=== PATIENT | male | born 1950 | race American Indian/Alaskan Native ===

== ENCOUNTER → 2021-07-25 10:33 | Outpatient (BNVA) | payer MEDICARE, MEDICAID, SELFPAY | PROVIDERS: Family Provider Nurse Practitioner Family; PCP Internal Medicine; Visit Provider Internal Medicine | DX: I25.10 Atherosclerotic heart disease of native coronary artery without angina pectoris (principal); I49.5 Sick sinus syndrome; I10 Essential (primary) hypertension; E78.5 Hyperlipidemia, unspecified; J44.9 Chronic obstructive pulmonary disease, unspecified; I35.0 Nonrheumatic aortic (valve) stenosis; I42.6 Alcoholic cardiomyopathy; Z95.0 Presence of cardiac pacemaker; Z79.82 Long term (current) use of aspirin; Z87.891 Personal history of nicotine dependence | CPT/HCPCS: 99213 ==

== ENCOUNTER → 2021-08-29 07:47 | Outpatient (BNVA) | payer MEDICARE, MEDICAID, SELFPAY | PROVIDERS: Family Provider Nurse Practitioner Family; PCP Internal Medicine; Visit Provider Internal Medicine | DX: Z45.010 Encounter for checking and testing of cardiac pacemaker pulse generator [battery] (principal) | CPT/HCPCS: 93280 ==

== ENCOUNTER → 2022-04-24 10:41 | Outpatient (BNVA) | payer MEDICARE, OTHER, MEDICAID, SELFPAY | PROVIDERS: Family Provider Nurse Practitioner Family; PCP Internal Medicine; Visit Provider Internal Medicine | DX: I25.10 Atherosclerotic heart disease of native coronary artery without angina pectoris (principal); Z95.0 Presence of cardiac pacemaker; I49.5 Sick sinus syndrome; I10 Essential (primary) hypertension; E78.5 Hyperlipidemia, unspecified; J44.9 Chronic obstructive pulmonary disease, unspecified; I35.0 Nonrheumatic aortic (valve) stenosis; I42.6 Alcoholic cardiomyopathy; Z87.891 Personal history of nicotine dependence | CPT/HCPCS: 99214 ==

== ENCOUNTER → 2022-10-01 12:49 | Outpatient (BNVA) | payer MEDICARE, MEDICAID, SELFPAY | PROVIDERS: Family Provider Nurse Practitioner Family; PCP Internal Medicine; Visit Provider Thoracic Surgery (Cardiothoracic Vascular Surgery) | DX: Z95.0 Presence of cardiac pacemaker (principal) | CPT/HCPCS: 99203 ==

== ENCOUNTER 2022-10-20 11:31 | Day surgery (SDC) | payer MEDICARE, MEDICAID, SELFPAY ==
[2022-10-15 10:45] VITALS: BMI 28.1
[2022-10-15 10:51] LABS: Basophils # 0.1 10^3/uL (0.0-0.1); Basophils % 0.7 %; Eosinophils # 0.2 10^3/uL (0.0-0.8); Eosinophils % 2.4 %; Hematocrit 45.9 % (42.0-52.0); Hemoglobin 15.5 g/dL (11.7-16.6); Lymphocytes # 3.4 10^3/uL (0.8-4.8); Lymphocytes % 38.1 %; Mean Corpuscular HGB Conc 33.8 g/dL (30.0-36.0); Mean Corpuscular Hemoglobin 29.7 pg (28.0-34.0); Mean Corpuscular Volume 87.9 fl (80-94); Mean Platelet Volume 11.6 fL (7.4-10.4); Monocytes # 0.6 10^3/uL (0.2-0.9); Monocytes % 7.2 %; Neutrophils # 4.58 10^3/uL (1.8-7.7); Neutrophils % 51.5 %; Nucleated Red Blood Cells % 0 %; Platelet Count 142 10^3/cmm (130-400); Red Blood Count 5.22 10^6/uL (4.1-5.3); White Blood Count 8.9 10^3/uL (4.0-10.0)
[2022-10-15 11:13] LABS: Anion Gap 17.3 (5-19); Blood Urea Nitrogen 11 mg/dL (8-23); Calcium 9.5 mg/dL (8.5-10.5); Carbon Dioxide 24 mmol/L (22-29); Chloride 105 mmol/L (98-107); Glomerular Filtration Rate 66.4 mL/min (90-130); Glucose 105 mg/dL (65-115); Osmolality Calculated 294 mOsm/kg (285-295); Potassium 4.3 mmol/L (3.5-5.1); Sodium 142 mmol/L (136-145)
--- NOTE | 2022-10-15 14:20 | ANES.PREANE2 ---
Pre-Anesthetic Assessment Height/Weight: Height 1.7 m Weight 81.647 kg Operation Date: 10/20/22 12:15 Proposed Procedures p pacemaker generator exchange 40550,I49.5(Not Applicable) - Rodri Sy MD Familial anesthetic complications: none Was Beta Marquise taken within 24 hours: Yes Was Clonidine taken within 24 hours: N/A Social No alcohol and No tobacco Exam alert, oriented x 3, clear to auscultation bilaterally and regular rate & rhythm Airway Submandibular: within normal limits Cervical ROM: within normal limits Mallampati: Class II Pulmonary Chronic Obstructive Pulmonary Disease CV/HEM Coronary Artery Disease, Hypertension and Murmur (Mild ) Alcoholic cardiomyopathy Pacemaker Metabolic Hyperlipidemia Anesthetic Plan ASA status: 3 Anesthesia: Choice Medications/Allergies Home Medications Medication Instructions Recorded Confirmed Last Taken Type aspirin 81 mg tablet,delayed 81 mg PO DAILY 07/28/19 10/15/22 10/11/22 History release (Aspir-) acetaminophen 500 mg tablet 500 mg PO Q6H PRN Pain 01/24/21 10/15/22 10/14/22 History (Tylenol Extra Strength) metoprolol tartrate 25 mg tablet 25 mg PO BID #180 tabs 10/21/21 10/15/22 10/14/22 Rx losartan 25 mg tablet 25 mg PO DAILY #90 tabs 05/05/22 10/15/22 10/14/22 Rx lovastatin 20 mg tablet 20 mg PO DAILY #90 tabs 07/15/22 10/15/22 10/14/22 Rx amlodipine 10 mg tablet 10 mg PO DAILY #90 tabs 09/10/22 10/15/22 10/14/22 Rx Allergies Allergy/AdvReac Type Severity Reaction Status Date / Time Penicillins Allergy Severe ALGY-Rash Verified 10/15/22 10:18 [facility] Anesthesia Medical History (Updated 10/01/22 @ 13:50 by Rodri Sy MD) Alcoholic cardiomyopathy Aortic stenosis ASHD (arteriosclerotic heart disease) COPD (chronic obstructive pulmonary disease) Dyslipidemia HTN (hypertension) SSS (sick sinus syndrome) Surgical History Status cardiac pacemaker Family History Brother CAD (coronary artery disease) S/P CABG (coronary artery bypass graft) Social History Smoking and tobacco status: former smoker Alcohol intake: former Substance/Drug Use: never Marital status: Single service: No Current occupational status: retired Data Anesthesia 10/15/22 10:27 10/15/22 10:27 Short CBC 10/15/22 Range/Units 10:27 WBC 8.9 (4.0-10.0) 10^3/uL Hgb 15.5 (11.7-16.6) g/dL Hct 45.9 (42.0-52.0) % MCV 87.9 (80-94) fl Plt Count 142 (130-400) 10^3/cmm Neut % (Auto) 51.5 % Neut # (Auto) 4.58 (1.8-7.7) 10^3/uL BMP 10/15/22 10:27 Sodium 142 Potassium 4.3 Chloride 105 Carbon Dioxide 24 BUN 11 Creatinine 1.1 Glucose 105 Calcium 9.5 Cardiac Studies: No Data to Display
[2022-10-20] VITALS (8 sets, daily range): BP systolic 106–143; BP diastolic 59–71; PULSE 60–66; RESP 13–18; TEMP 36.1–36.3; O2SAT 98–100
[2022-10-20] MEDS: sodium chloride 0.9% 1,000 ML 30 ML IV (12:30)
--- NOTE | 2022-10-20 13:19 | P.ANESUD_ITS ---
Pre-Anesthetic Update Pre-Anesthetic Assessment: Date of Surgery/Procedure: 10/20/22 Preop Crissy gnosis: Pacemaker end of service Proposed Procedure: Operation Date: 10/20/22 13:25 Proposed Procedures p pacemaker generator exchange 20696,I49.5(Not Applicable) - Rodri Sy MD Any changes to Pre-Anesthetic Assessment?: No Last Intake: Intake Last Liquid Date 10/19/22 Last Liquid Time 22:00 Last Solid Date 10/19/22 Last Solid Time 22:00 Vitals: Temperature 97.4 F L 10/20/22 12:09 Temperature Source Temporal Artery S can 10/20/22 12:09 Pulse Rate 66 10/20/22 12:09 Respiratory Rate 18 10/20/22 12:09 Blood Pressure 143/71 10/20/22 12:09 Blood Pressure Damari n 95 10/20/22 12:09 Pulse Oximetry 100 10/20/22 12:09 Oxygen Delivery Me thod Room Air 10/20/22 12:10 Exam: Pre-Anes Outpt Exam: alert, oriented x 3, clear to auscultation bilaterally and regular rate & rhythm Cardiac Studies: No Data to Display
--- NOTE | 2022-10-20 14:54 | W.PM.OPSUD ---
Surgery/Procedure H&P Update DATE OF PROCEDURE: October 20, 2022 DATE H&P PERFORMED: 10/01/22 H&P UPDATE INFORMATION: I have reviewed H&P completed within last 30 days, I have examined patient prior to procedure and No changes to prior documentation PREOP DIAGNOSIS: Pacemaker end of service PLANNED PROCEDURE: Operation Date: 10/20/22 13:25 Proposed Procedures p pacemaker generator exchange 73624,I49.5(Not Applicable) - Rodri Sy MD
[2022-10-20] MEDS: vancomycin 1,500 MG/300 ML PIGGYBACK 200 MG IV (15:30)
[2022-10-20] MEDS: vancomycin 1,000 MG SDV 1000 MG XX (16:00)
[2022-10-20] MEDS: lidocaine 1% INJ 10 mL (per mL) 20 ML XX (16:00)
--- NOTE | 2022-10-20 16:37 | P.OP_ITS ---
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 Zepeda is a pleasant 71-year-old gentleman with current dual-chamber pacemaker near end of service. He was originally implanted in 1999 for sick sinus syndrome. He has had 1 generator exchange previously. He presents with his current device at end of service. Details and rationale for generator exchange were carefully discussed including potential risk for bleeding, infection requiring device explantation, injury to the leads requiring further revision, continued need for long-term surveillance. All questions were answered. Appropriate consents have been reviewed and signed. Procedure: Mr. Zepeda was appropriately positioned and sterilely prepped and draped. Operative timeout was completed. IV consicious sedation was given with anesthesia monitoring. 1% lidocaine was infiltrated through the prior insertion incision site. # 15 scalpel blade was used to incise the skin down to subcutaneous layer. Subsequently, using sharp and blunt dissection the pseudocapsule to the old generator was reached and opened with a scalpel blade. This area was then enhanced utilizing Metzenbaum scissors with care taken not to injure the pacing leads. Once the pocket was adequate opened, hemostats were utilized to deliver the old generator. Set screws were released and the leads were removed and inserted properly into the new generator with set screws then secured. The old generator was removed from the field. The incision was irrigated with antibiotic solution. Hemostasis was confirmed. The new generator was placed back into the old subcutaneous pocket. The wound was then closed in 2 layers of 3-0 Vicryl suture. Skin was closed in a subcuticular ma nner with 4-0 undyed Vicryl suture. A 2 layer pressure dressing was then applied. The entire system was interrogated and appropriate parameters obtained. Patient tolerated procedure well and was taken to the recovery room in stable condition. There are no immediate family members available in person or by phone to discuss operative results with. [employer] pacemaker model:[id number] serial number:[id number] Right atrial lead has a amplitude of 3.9 with an impedance of 342 ohms and a capture threshold of 0.75 V Right ventricular lead revealed poorly pacing without escape. Impedance 266 ohms. Capture threshold 0.5 V
--- NOTE | 2022-10-20 18:02 | ANE.PACU2 ---
Inpatient post-anesthesia follow up: Airway intact: Yes Vital signs: Temperature 97 F Pulse Rate 60 Respiratory Rate 18 Blood Pressure 130/67 Pulse Oximetry 98 Oxygen Delivery Me thod Room Air Oxygen Flow Rate 8 Fraction of Inspir ed Oxygen Hydration adequate: Yes Nausea and vomiting: No Pain level: 1 Mental status: Baseline
== END 2022-10-20 18:15 | disposition home or self-care (01) ==
PROVIDERS: Visit Provider Thoracic Surgery (Cardiothoracic Vascular Surgery)
PROC: 0JPT0PZ Removal of Cardiac Rhythm Related Device from Trunk Subcutaneous Tissue and Fascia, Open Approach (ICD-10-PCS; CPT 33228; principal; 2022-10-20 13:15)
DX: I49.5 Sick sinus syndrome (principal); J44.9 Chronic obstructive pulmonary disease, unspecified; I25.10 Atherosclerotic heart disease of native coronary artery without angina pectoris; I10 Essential (primary) hypertension; E78.5 Hyperlipidemia, unspecified; Z79.82 Long term (current) use of aspirin; Z79.891 Long term (current) use of opiate analgesic
CPT/HCPCS: 33228; 36415; 80048; 85025; C1786; J2250; J2371; J2704; J3010; J3370; J7030

== ENCOUNTER → 2023-01-22 09:48 | Outpatient (BNVA) | payer MEDICARE, MEDICAID, SELFPAY | PROVIDERS: Visit Provider Internal Medicine | DX: I25.10 Atherosclerotic heart disease of native coronary artery without angina pectoris (principal); I42.6 Alcoholic cardiomyopathy; Z95.0 Presence of cardiac pacemaker; I10 Essential (primary) hypertension; E78.5 Hyperlipidemia, unspecified; J44.9 Chronic obstructive pulmonary disease, unspecified; I35.0 Nonrheumatic aortic (valve) stenosis; Z87.891 Personal history of nicotine dependence | CPT/HCPCS: 99214 ==

== ENCOUNTER → 2023-10-21 14:50 | Outpatient (BNVA) | payer MEDICARE, MEDICAID, SELFPAY | PROVIDERS: Visit Provider Internal Medicine | DX: I35.0 Nonrheumatic aortic (valve) stenosis (principal); I25.10 Atherosclerotic heart disease of native coronary artery without angina pectoris; Z95.0 Presence of cardiac pacemaker; I49.5 Sick sinus syndrome; I10 Essential (primary) hypertension; E78.5 Hyperlipidemia, unspecified; J44.9 Chronic obstructive pulmonary disease, unspecified; I42.6 Alcoholic cardiomyopathy | CPT/HCPCS: 99214 ==

== ENCOUNTER → 2024-07-19 08:21 | Outpatient (BNVA) | payer MEDICARE, MEDICAID, SELFPAY | PROVIDERS: Visit Provider Internal Medicine | DX: I25.10 Atherosclerotic heart disease of native coronary artery without angina pectoris (principal); I49.5 Sick sinus syndrome; I10 Essential (primary) hypertension; E78.5 Hyperlipidemia, unspecified; I35.0 Nonrheumatic aortic (valve) stenosis; I42.6 Alcoholic cardiomyopathy; Z95.0 Presence of cardiac pacemaker | CPT/HCPCS: 99214 ==

== ENCOUNTER 2024-08-28 07:36 | Outpatient (CLI) | payer OTHER, MEDICAID, SELFPAY ==
--- NOTE | 2024-08-28 07:45 | USCV_ITS ---
Chucho Zepeda Age: 73 Gender: M : 1950 Exam Date: 08/28/2024 07:50 Ordering Phys: Anthony Ferris M.D ([email or web address]) Technologist: Exam Location: [facility] [place] Indication: as BP: 120 / 70 HR: 74 Rhythm: Sinus Technical Quality: Adequate MEASUREMENTS (Male / Female) Normal Values 2D ECHO LV Diastolic Diameter PLAX 4.6 cm 4.2 - 5.9 / 3.9 - 5.3 cm IVS Diastolic Thickness 1.3 cm 0.6 - 1.0 / 0.6 - 0.9 cm IVS Systolic Thickness 2.2 cm LVPW Diastolic Thickness 1.3 cm 0.6 - 1.0 / 0.6 - 0.9 cm LVPW Systolic Thickness 1.8 cm LVOT Diameter 2.1 cm LV Ejection Fraction 2D Teich 72.5 % LV Ejection Fraction MOD 4C 65.0 % LV Ejection Fraction MOD 2C 66.5 % LV Ejection Fraction 2C AL 64.6 % LA Diameter 4.1 cm RA Systolic Volume 4C AL 55.2 ml RA Systolic Volume 4C MOD 54.4 ml Aorta at Sinotubular Diameter 3.0 cm IVC Diameter 2.3 cm M-MODE LA Ao Ratio MM 1.4 AV Cusp Separation MM 2.2 cm DOPPLER AV Peak Velocity 146.0 cm/s LVOT Peak Velocity 96.0 cm/s AV Area Cont Eq vti 2.7 cm squared AV Area Cont Eq pk 2.2 cm squared MV Area PHT 4.8 cm squared Mitral E to A Ratio 0.8 TV Peak Velocity 276.0 cm/s TR Peak Velocity 278.0 cm/s TR Peak Gradient 30.9 mmHg TV Peak E Velocity 135.0 cm/s PV Peak Velocity 120.0 cm/s FINDINGS Left Ventricle Left ventricle is normal size. LV systolic function is mildly reduced with EF of 45-50%. Mild global hypokinesis. Grade 1 diastolic dysfunction Right Ventricle Normal in size and function. Pacemaker lead seen Right Atrium Normal in size Left Atrium Dilated Mitral Valve Structurally normal mitral valve. Mild mitral regurgitation. Aortic Valve Aortic valve is thickened. Trace aortic regurgitation. No significant stenosis. Tricuspid Valve Mild tricuspid regurgitation. RVSP is 30-35mmHg. Pulmonic Valve Not well visualized Pericardium Normal Aorta Normal in size IVC Not well visualized CONCLUSIONS LV systolic function is mildly reduced with EF of 45-50% Grade 1 diastolic dysfunction. Left atrial dilation. Pacemaker lead is seen in the RA and RV. Mild mitral regurgitation Mild tricuspid regurgitation Trace aortic regurgitation Comapred to prior echocardiogram from 2019, no significant changes are seen. Anthony Ferris MD (Electronically Signed) Final Date: 14 September 2024 10:51 S
== END 2024-08-28 07:37 | disposition home or self-care (01) ==
LOC: RAD 07:38
PROVIDERS: Visit Provider Internal Medicine
DX: I35.0 Nonrheumatic aortic (valve) stenosis (principal); R93.1 Abnormal findings on diagnostic imaging of heart and coronary circulation; Z96.89 Presence of other specified functional implants; I34.0 Nonrheumatic mitral (valve) insufficiency; I35.8 Other nonrheumatic aortic valve disorders; I07.1 Rheumatic tricuspid insufficiency
CPT/HCPCS: 93306